=== PATIENT | female | born 1975 | race Caucasian/White ===

== ENCOUNTER 2025-05-12 23:32 | Emergency (ER) | payer OTHER ==
[~2025-05-12] VITALS: Ht 170.2 cm; Wt 78.0 kg
[2025-05-12 23:44] VITALS: O2SAT 94
[2025-05-13] MEDS: ONDANSETRON HCL 4MG/2ML INJ IV ONE (00:40)
[2025-05-13] MEDS: FAMOTIDINE 20MG TABLET PO ONE (00:40)
[2025-05-13] MEDS: KETOROLAC 15MG/ML VIAL IV ONE (00:40)
[2025-05-13] MEDS: MAGNESIUM/ALUMINUM HYDROXIDE/SIMETHICONE 30ML UDC PO ONE (00:40)
[2025-05-13] MEDS: SODIUM CHLORIDE 0.9% 1,000 ML IV ONE (00:41)
[2025-05-13 01:03] LABS: BASOPHILS % 0.2 % (0.0-2.0); EOSINOPHILS % 0.6 % (0.0-5.0); HEMATOCRIT. 39.1 % (36.0-48.0); HEMOGLOBIN. 12.8 g/dL (12.0-16.0); LYMPHOCYTES % 16.4 % (20.0-50.0); MEAN PLATELET VOLUME 7.1 fl (7.4-10.4); MONOCYTES % 5.7 % (2.0-8.0); NEUTROPHILS % 77.1 % (40.0-76.0); PLATELET 309 x1000/uL (130-400); RED BLOOD CELL COUNT 4.74 mill/uL (4.2-5.4); RED CELL DISTRIBUTION WIDTH 15.7 % (11.6-14.6)
[2025-05-13 01:05] LABS: *AMPHETAMINES SCREEN URINE NEGATIVE (NEGATIVE); *BENZODIAZEPINES SCREEN URINE NEGATIVE (NEGATIVE)
[2025-05-13 01:06] LABS: *BARBITURATES SCREEN URINE NEGATIVE (NEGATIVE); *COCAINE SCREEN URINE NEGATIVE (NEGATIVE); CANNABINOID URINE SCREEN NEGATIVE (NEGATIVE); ECSTASY MDMA SCREEN URINE CONF.TEST INDICATED (NEGATIVE); METHADONE URINE SCREEN NEGATIVE (NEGATIVE); OPIATES URINE SCREEN NEGATIVE (NEGATIVE); PHENCYCLIDINE URINE SCREEN NEGATIVE (NEGATIVE)
[2025-05-13 01:16] LABS: HCG SCREEN NEGATIVE
[2025-05-13 01:16] LABS: CLARITY URINE CLEAR (CLEAR); COLOR URINE DARK YELLOW (YELLOW); GLUCOSE URINE NEGATIVE (NEGATIVE); KETONES URINE TRACE (NEGATIVE); LEUKOCYTE ESTERASE URINE TRACE (NEGATIVE); NITRITE URINE NEGATIVE (NEGATIVE); OCCULT BLOOD URINE NEGATIVE (NEGATIVE); PH URINE 5.0 (4.5-8.0); PROTEIN URINE 1+ (NEGATIVE); SPECIFIC GRAVITY URINE 1.041 (1.005-1.030); UROBILINOGEN URINE 1.0 E.U./dL (0.2-1.0)
[2025-05-13 01:17] LABS: CREATININE 0.8 mg/dL (0.6-1.0)
[2025-05-13 01:18] LABS: UREA NITROGEN BLOOD 10 mg/dL (9-23)
[2025-05-13 01:19] LABS: ASPARTATE AMINOTRANSFERASE 80 IU/L (<34)
[2025-05-13 01:19] LABS: BACTERIA URINE TRACE; RBC URINE 0-2 /hpf (0-2); SQUAMOUS EPITHELIAL CELL URINE FEW /lpf (RARE/1+)
[2025-05-13 01:20] LABS: BILIRUBIN DIRECT 0.3 mg/dL (<=3.0); BILIRUBIN TOTAL 0.8 mg/dL (0.1-1.0); PROTEIN TOTAL 7.5 g/dL (6.0-8.3)
[2025-05-13] MEDS: MORPHINE SULFATE 4 MG/ML INJ (FOR IV/IM USE) IV ONE (02:45)
[2025-05-13] MEDS: METRONIDAZOLE 500 MG PREMIX 100 ML IV ONE (02:46)
[2025-05-13] MEDS: IOHEXOL-300 100 ML BOTTLE ONE (03:03)
[2025-05-13] MEDS: CEFTRIAXONE 2GM/50ML 50 ML IV ONE (03:18)
[2025-05-13 05:06] VITALS: TEMP 36.6
[2025-05-13 05:42] VITALS: BP 123/80; PULSE 68; RESP 11
[2025-05-13] MEDS ORDERED: ACETAMINOPHEN 325MG TABLET PO ONE (05:45)
== END 2025-05-13 05:46 | disposition left against medical advice (07) ==
LOC: ER 23:32 → CMPBEDREQ 05-13 07:47
DX: K80.00 Calculus of gallbladder with acute cholecystitis without obstruction (principal); Z79.899 Other long term (current) drug therapy
CPT/HCPCS: 36415; 99291; 80076; 80305; 80048; 81003; 80320; 84703; 83690; 85025; 74177; 76705; 96367; 96361; 96365; 96375; Q9967; J0696; J1885; J3490; J2405; J7030; J2270; G0480